=== PATIENT | male | born 1955 | race Caucasian/White ===

== ENCOUNTER → 2017-06-18 | Outpatient (CLI) | payer OTHER ==
[~2017-06-18] MED LIST: REGADENOSON 0.4 MG/5 ML DISP.SYRIN. IV ONE
--- NOTE | 2017-06-21 09:57 | PCVCIMAG ---
APPROVED REPORT Study performed: 06/18/2017 07:47:45 EXAM: Comprehensive 2D, Doppler, and color-flow Echocardiogram Patient Location: Echo lab Status: routine BSA: 2.38 HR: 74 bpmBP: 106/68 mmHg Rhythm: NSR Other Information Study Quality: Adequate Risk Factors: Cardiac Risk Factors: Hyperlipidemia, FHX of CAD Indications Diabetes 2D Dimensions LVEF(%): 55.20 (>50%) IVSd: 11.35 (7-11mm) LVDd: 45.38 mm PWd: 11.05 (7-11mm) LVDs: 32.41 (25-40mm) Left Atrium: 40.39 (27-40mm) Aortic Root: 35.29 mm LV Single Plane 4CH: 49.80 % LV Single Plane 2CH: 60.05 %Bhatt's LVEF: 54.92 % Biplane EF: 55.4 % Volumes Left Atrial Volume (Systole) Single Plane 4CH: 54.48 mLSingle Plane 2CH: 61.97 mL LA ESV Index: 25.00 mL/m2 Aortic Valve AoV Peak Isaías.: 1.18 m/s AO Peak Gr.: 5.52 mmHgLVOT Max P.33 mmHg LVOT Max V: 1.04 m/s Mitral Valve E/A Ratio: 1.4 MV Decel. Time: 228.62 ms MV E Max Isaías.: 0.66 m/s MV A Isaías.: 0.48 m/s IVRT: 93.43 ms Pulmonary Valve PV Peak Isaías.: 0.96 m/sPV Peak Gr.: 3.69 mmHg Pulmonary Vein P Vein S: 0.38 m/sP Vein A: 0.29 m/s P Vein D: 0.51 m/sP Vein A Dur.: 128.0 msec P Vein S/D Ratio: 0.75 Tricuspid Valve TR Peak Isaías.: 2.78 m/s TR Peak Gr.: 30.92 mmHg Left Ventricle The left ventricle is normal size. There is normal LV segmental wall motion. There is normal left ventricular wall thickness. Left ventricular systolic function is normal. The left ventricular ejection fraction is within the normal range. LVEF is >55%. The left ventricular diastolic function is normal. Right Ventricle The right ventricle is normal size. The right ventricular systolic function is normal. Atria The left atrium size is normal. The right atrium size is normal. Aortic Valve The aortic valve is normal in structure. No aortic regurgitation is present. There is no aortic valvular stenosis. Mitral Valve The mitral valve is normal in structure. There is no mitral valve regurgitation noted. No evidence of mitral valve stenosis. Tricuspid Valve The tricuspid valve is normal in structure. Mild tricuspid regurgitation with PAP of 38 mmHg. Pulmonic Valve The pulmonary valve is normal in structure. There is no pulmonic valvular regurgitation. Great Vessels The aortic root is normal in size. IVC is normal in size and collapses with >50% inspiration Pericardium There is no pericardial effusion. <Conclusion> The left ventricle is normal size. Left ventricular systolic function is normal. The left ventricular ejection fraction is within the normal range. The left ventricular diastolic function is normal. The right ventricle is normal size. The left atrium size is normal. The mitral valve is normal in structure. There is no pericardial effusion.
--- NOTE | 2017-06-21 10:31 | PCVCIMAG ---
APPROVED REPORT Exam: Nuclear Stress Test Indication: Risk Stratification Patient Location: Out Patient Stress Nurse: Ashley Perez RN, Jennifer Flaherty RN [place] Tech:Skip Cobb NMTCB Ht: 6 ft 0 in Wt: 256 lbs BSA: 2.37 m2 HR: 80 bpm BP: 100/60 mmHg BMI: 34.7 Rhythm: NSR Medical History Medical History: Age, Hyperlipidemia, HTN, DM, Family HX of CAD Medications: Benicar HCT, Atorvastatin, Welchol Allergies: Zithromax Exercise History: Physically active NM EXAM: Myocardial Perfusion REST/STRESS Imaging Protocol: Rest Tc-99m/Stress Tc-99m 1 day Resting Data Rest SPECT myocardial perfusion imaging was performed in supine position 45 minutes following the intravenous injection of 17.2 mCi of Tc-99m Sestamibi. Time of rest injection: 0845 Date: 06/18/2017 Pharmacologic Stress Pharmacologic stress test was performed by injecting Regadenoson 0.4 mg IV push followed by the intravenous injection of 46.4 mCi of Tc-99m Sestamibi. Time of stress injection: 1000 Date: 06/18/2017 The images were gated to evaluate regional wall motion and calculate left ventricular ejection fraction. Study Quality Study: Good Study Data Post stress, the left ventricular ejection was 61%.. SSS: 4 SRS: 2 SDS: 2 TID = 1.15. Perfusion Small sized area of mild/moderate reversible ischemia involving the mid anterior left ventricle consistent with a left anterior descending distribution. Wall Motion Normal left ventricular size and function with no regional wall motion abnormalities. Nuclear Conclusion Small sized area of mild/moderate reversible ischemia involving the mid anterior left ventricle consistent with a left anterior descending distribution. Normal left ventricular size and function with no regional wall motion abnormalities. Post stress, the left ventricular ejection was 61%.. No prior study available for comparison. Interpreted by: Norris Carrion MD Electronically Approved: 06/18/2017 14:55:23 Stress Test Details Stress Test: Pharmacologic stress was paired with low level exercise. Reason for pharmacologic stress test: physical limitation. HR Resting HR: 80 bpmMax Heart Rate (APMHR): 160 bpm Max HR Achieved: 116 bpmTarget HR (85% APMHR): 136 bpm % of APMHR: 72 Recovery HR: 88 bpm BP Resting BP: 100/60 mmHg Max BP: 124/64 mmHg ECG Resting ECG: Sinus Rhythm Stress ECG: Sinus Rhythm, Sinus Rhythm, NSSTT changes Recovery ECG: Sinus Rhythm Clinical Reason for Termination: Completed protocol Stress Symptoms: Dyspnea, Arm Fatigue, Exercise duration: 4 min sec Exercise capacity: 1.6 METs Symptoms resolved with caffeine. Stress ECG Conclusion ECG: Non-ischemic <Conclusion> ECG: Non-ischemic
== END | disposition home or self-care (01) ==
LOC: PCVCIMAG 08:12
PROVIDERS: ATTEND Internal Medicine Cardiovascular Disease
DX: I07.1 Rheumatic tricuspid insufficiency (principal); I10 Essential (primary) hypertension; K52.9 Noninfective gastroenteritis and colitis, unspecified; E11.9 Type 2 diabetes mellitus without complications; E78.00 Pure hypercholesterolemia, unspecified; Z82.49 Family history of ischemic heart disease and other diseases of the circulatory system
CPT/HCPCS: 78452; 93017; 93306; A9500; J2785